=== PATIENT | male | born 1985 | race African-American/Black ===

== ENCOUNTER 2018-07-23 15:22 | Emergency (ER) | payer MEDICAID ==
[~2018-07-23] VITALS: Ht 177.8 cm; Wt 82.0 kg
[2018-07-23] MEDS ORDERED: LORAZEPAM 1MG TABLET PO ONE (16:00)
[2018-07-23] MEDS ORDERED: OLANZAPINE 5MG TABLET ODT PO ONE (16:00)
[2018-07-23 16:34] LABS: BASOPHILS % 0.5 % (0.0-2.0); EOSINOPHILS % 0.3 % (0.0-5.0); HEMOGLOBIN. 14.8 g/dL (14.0-18.0); LYMPHOCYTES % 19.4 % (20.0-50.0); MEAN CORPUSCULAR HEMOGLOBIN 28.3 pg (28.0-32.0); MEAN CORPUSCULAR VOLUME 88.2 fL (80.0-94.0); MEAN PLATELET VOLUME 7.7 fl (7.4-10.4); MONOCYTES % 6.6 % (2.0-8.0); NEUTROPHILS % 73.2 % (40.0-76.0); PLATELET 311 x1000/uL (130-400); RED BLOOD CELL COUNT 5.22 mill/uL (4.7-6.1); RED CELL DISTRIBUTION WIDTH 15.5 % (11.6-14.6)
[2018-07-23 16:35] LABS: CHLORIDE 103 mEq/L (98-107)
[2018-07-23 16:39] LABS: ETHANOL BLOOD 87 mg/dL
[2018-07-23 17:54] LABS: *AMPHETAMINES SCREEN URINE NEGATIVE (NEGATIVE); *BARBITURATES SCREEN URINE NEGATIVE (NEGATIVE); *BENZODIAZEPINES SCREEN URINE NEGATIVE (NEGATIVE); *COCAINE SCREEN URINE NEGATIVE (NEGATIVE); METHADONE URINE SCREEN NEGATIVE (NEGATIVE)
[2018-07-23 17:55] LABS: CANNABINOID URINE SCREEN NEGATIVE (NEGATIVE); OPIATES URINE SCREEN NEGATIVE (NEGATIVE); PHENCYCLIDINE URINE SCREEN NEGATIVE (NEGATIVE)
[2018-07-23] MEDS ORDERED: OLANZAPINE 5MG TABLET ODT PO NR (21:30)
[2018-07-23] MEDS ORDERED: LORAZEPAM 1MG TABLET PO NR (21:30)
[2018-07-24 12:37] LABS: CLARITY URINE CLEAR (CLEAR); COLOR URINE YELLOW (YELLOW); KETONES URINE TRACE (NEGATIVE); LEUKOCYTE ESTERASE URINE NEGATIVE (NEGATIVE); NITRITE URINE NEGATIVE (NEGATIVE); OCCULT BLOOD URINE NEGATIVE (NEGATIVE); PH URINE 6.5 (4.5-8.0); PROTEIN URINE TRACE (NEGATIVE); SPECIFIC GRAVITY URINE 1.033 (1.005-1.030)
[2018-07-24 19:20] VITALS: BP 130/73
== END 2018-07-24 19:41 ==
LOC: ER 15:22
DX: F20.9 Schizophrenia, unspecified (principal); F10.129 Alcohol abuse with intoxication, unspecified; R45.851 Suicidal ideations; F15.10 Other stimulant abuse, uncomplicated; F17.210 Nicotine dependence, cigarettes, uncomplicated; Y90.4 Blood alcohol level of 80-99 mg/100 ml; Z71.6 Tobacco abuse counseling; Z91.14 Patient's other noncompliance with medication regimen
CPT/HCPCS: 36415; 80048; 80305; 80307; 80329; 81003; 85025; 99285; 99406; G0482

== ENCOUNTER 2018-08-29 13:20 | Emergency (ER) | payer MEDICAID ==
[~2018-08-29] VITALS: Ht 177.8 cm; Wt 77.0 kg
[2018-08-29 23:22] VITALS: BP 153/118
== END 2018-08-29 17:09 | disposition left against medical advice (07) ==
LOC: ER 13:38
DX: Z53.21 Procedure and treatment not carried out due to patient leaving prior to being seen by health care provider (principal); F17.200 Nicotine dependence, unspecified, uncomplicated

== ENCOUNTER 2018-08-30 02:57 | Inpatient (IN) | payer MEDICAID, OTHER ==
[2018-08-30] VITALS (20 sets, daily range): BP systolic 44–142; BP diastolic 25–102
[~2018-08-30] VITALS: Ht 165.1 cm; Wt 71.2 kg
[2018-08-30] MEDS ORDERED: SODIUM CHLORIDE 0.9% 1000ML BAG (SEPSIS BOLUS) IV ONE (04:00)
[2018-08-30 04:45] LABS: HEMATOCRIT. 46.4 % (42.0-52.0); HEMOGLOBIN. 13.8 g/dL (14.0-18.0); MEAN CORPUSCULAR HEMOGLOBIN 28.7 pg (28.0-32.0); MEAN CORPUSCULAR VOLUME 96.3 fL (80.0-94.0); PLATELET 314 x1000/uL (130-400); RED BLOOD CELL COUNT 4.81 mill/uL (4.7-6.1); RED CELL DISTRIBUTION WIDTH 15.2 % (11.6-14.6)
[2018-08-30 04:52] LABS: CHLORIDE 78 mEq/L (98-107)
[2018-08-30 04:56] LABS: ETHANOL BLOOD < 10 mg/dL
[2018-08-30 05:09] LABS: CLARITY URINE CLEAR (CLEAR); COLOR URINE YELLOW (YELLOW); KETONES URINE 4+ (NEGATIVE); LEUKOCYTE ESTERASE URINE NEGATIVE (NEGATIVE); NITRITE URINE NEGATIVE (NEGATIVE); OCCULT BLOOD URINE 1+ (NEGATIVE); PROTEIN URINE 1+ (NEGATIVE); SPECIFIC GRAVITY URINE 1.022 (1.005-1.030); UROBILINOGEN URINE 0.2 E.U./dL (0.2-1.0)
[2018-08-30] MEDS ORDERED: VANCOMYCIN 1 G PREMIX 200 ML IV NR (05:15)
[2018-08-30] MEDS ORDERED: PIPERACILLIN/TAZOBACTAM 3.375GM/50ML PREMIX IV ONE (05:15)
[2018-08-30] MEDS ORDERED: PIPERACILLIN/TAZ 3.375G PREMIX 50 ML IV NR (05:15)
[2018-08-30] MEDS ORDERED: INSULIN REGULAR (DRIP) 100 UNITS in SODIUM CHLORIDE 0.9% 100 ML IV NR ×4 (05:45)
[2018-08-30 06:09] LABS: PLATELET ESTIMATE NORMAL
[2018-08-30 08:53] LABS: BG BASE EXCESS -24.6 mmol/L (-2.0-2.0); BG CARBOXYHEMOGLOBIN 0.8 % (0.5-1.5); BG DEOXYHEMOGLOBIN 6.4 % (0.0-5.0); BG HCO3 ACT 3.6 mmol/L (22.0-26.0); BG METHEMOGLOBIN 0.3 % (0.0-1.5); BG OXYGEN SATURATION 93.5 % (92.0-98.5); BG OXYHEMOGLOBIN 92.5 % (94.0-97.0); BG PCO2 12.8 mmHg (35.0-45.0); BG PH 7.061 (7.350-7.450); BG PO2 75.3 mmHg (75.0-100.0); BG SAMPLE SITE RIGHT BRACHIAL; BG TOTAL HEMOGLOBIN 14.6 g/dL (12.0-18.0); BG VENT MODE ROOM AIR
[2018-08-30] MEDS ORDERED: INSULIN REGULAR (DRIP) 100 UNITS in SODIUM CHLORIDE 0.9% 100 ML IV SCH (09:04)
[2018-08-30] MEDS ORDERED: MAGNESIUM/ALUMINUM HYDROXIDE/SIMETHICONE 30ML UDC PO PRN (09:15)
[2018-08-30] MEDS ORDERED: CLONIDINE 0.1MG TABLET PO PRN (09:15)
[2018-08-30] MEDS ORDERED: ZOLPIDEM TARTRATE 5MG TABLET PO PRN (09:15)
[2018-08-30] MEDS ORDERED: DOCUSATE SODIUM 100MG CAPSULE PO PRN (09:15)
[2018-08-30] MEDS ORDERED: ONDANSETRON HCL 4MG/2ML INJ IV PRN (09:15)
[2018-08-30] MEDS ORDERED: NA PHOS,M-B/NA PHOS,DI-BA ENEMA 118ML PR PRN (09:15)
[2018-08-30] MEDS ORDERED: IPRATROPIUM/ALBUTEROL 0.5-3(2.5)MG/3ML NEB INH PRN (09:15)
[2018-08-30] MEDS ORDERED: DEXTROSE 50% WATER 50ML SYRINGE IV PRN ×2 (09:15)
[2018-08-30] MEDS ORDERED: ACETAMINOPHEN 325MG TABLET PO PRN (09:15)
[2018-08-30] MEDS: PANTOPRAZOLE SODIUM 40 MG/VIAL IV SCH (11:04)
[2018-08-30] MEDS: METOPROLOL TARTRATE 25MG TABLET PO SCH ×2 (11:05→20:33)
[2018-08-30] MEDS: SODIUM CHLORIDE 0.9% 1,000 ML IV SCH ×2 (11:05→15:55)
[2018-08-30] MEDS: BLOOD SUGAR DIAGNOSTIC STRIP TEST SCH ×13 (11:07→23:00)
[2018-08-30] MEDS: INSULIN REGULAR (DRIP) 100 UNITS in SODIUM CHLORIDE 0.9% 100 ML IV SCH ×2 (11:07→21:40)
[2018-08-30 12:08] LABS: BASOPHILS % 0.4 % (0.0-2.0); HEMATOCRIT. 43.2 % (42.0-52.0); HEMOGLOBIN. 14.1 g/dL (14.0-18.0); LYMPHOCYTES % 8.3 % (20.0-50.0); MEAN CORPUSCULAR HEMOGLOBIN 28.5 pg (28.0-32.0); MEAN CORPUSCULAR VOLUME 87.2 fL (80.0-94.0); MEAN PLATELET VOLUME 9.2 fl (7.4-10.4); MONOCYTES % 8.5 % (2.0-8.0); NEUTROPHILS % 82.8 % (40.0-76.0); PLATELET 297 x1000/uL (130-400); RED BLOOD CELL COUNT 4.95 mill/uL (4.7-6.1); RED CELL DISTRIBUTION WIDTH 15.1 % (11.6-14.6)
[2018-08-30 12:11] LABS: PROTHROMBIN TIME 9.9 sec (9.1-11.1)
[2018-08-30 12:17] LABS: CHLORIDE 105 mEq/L (98-107)
[2018-08-30 12:23] LABS: PHOSPHORUS 1.6 mg/dL (2.5-4.9)
[2018-08-30] MEDS ORDERED: SODIUM BICARBONATE 8.4% 1 MEQ/ML 50ML SYR IV SCH (13:15)
[2018-08-30] MEDS ORDERED: SODIUM PHOS,M-BASIC-D-BASIC 20 MM in DEXT 5% WATER 243.3333 ML IV SCH (14:00)
[2018-08-30 18:57] LABS: CHLORIDE 111 mEq/L (98-107)
[2018-08-30] MEDS ORDERED: DEXTROSE 5% WATER 1,000 ML IV SCH (19:00)
[2018-08-30] MEDS: LEVOFLOXACIN 500MG PREMIX 100 ML IV SCH (20:32)
[2018-08-30] MEDS: GUAIFENESIN 200MG/10ML SUGAR FREE UDC PO PRN (20:41)
[2018-08-30] MEDS ORDERED: CEFTRIAXONE 1 G PREMIX 50 ML IV SCH (21:00)
[2018-08-30] MEDS: DEXT 5%/0.9% NACL KCL 20MEQ/L 1,000 ML IV SCH (21:40)
[2018-08-31] VITALS (38 sets, daily range): BP systolic 79–141; BP diastolic 33–87
[2018-08-31] MEDS: BLOOD SUGAR DIAGNOSTIC STRIP TEST SCH ×26 (00:34→23:45)
[2018-08-31 00:56] LABS: CHLORIDE 107 mEq/L (98-107)
[2018-08-31] MEDS: GUAIFENESIN 200MG/10ML SUGAR FREE UDC PO PRN (03:39)
[2018-08-31] MEDS: DEXT 5%/0.9% NACL KCL 20MEQ/L 1,000 ML IV SCH ×3 (05:25→18:59)
[2018-08-31 05:30] LABS: HEMATOCRIT. 36.2 % (42.0-52.0); HEMOGLOBIN. 12.4 g/dL (14.0-18.0); MEAN CORPUSCULAR HEMOGLOBIN 28.5 pg (28.0-32.0); MEAN CORPUSCULAR VOLUME 83.2 fL (80.0-94.0); RED BLOOD CELL COUNT 4.35 mill/uL (4.7-6.1); RED CELL DISTRIBUTION WIDTH 15.1 % (11.6-14.6)
[2018-08-31 05:32] LABS: CHLORIDE 110 mEq/L (98-107)
[2018-08-31 05:38] LABS: PHOSPHORUS 1.1 mg/dL (2.5-4.9)
[2018-08-31] MEDS: METOPROLOL TARTRATE 25MG TABLET PO SCH ×2 (08:27→21:25)
[2018-08-31] MEDS: PANTOPRAZOLE SODIUM 40 MG/VIAL IV SCH (08:27)
[2018-08-31] MEDS ORDERED: POTASSIUM PHOS,M-BASIC-D-BASIC 30 MMOL in DEXT 5% WATER 500 ML IV SCH (09:00)
[2018-08-31 09:49] LABS: PLATELET ESTIMATE NORMAL
[2018-08-31 12:19] LABS: *AMPHETAMINES SCREEN URINE NEGATIVE (NEGATIVE); *BARBITURATES SCREEN URINE NEGATIVE (NEGATIVE); *BENZODIAZEPINES SCREEN URINE NEGATIVE (NEGATIVE); *COCAINE SCREEN URINE NEGATIVE (NEGATIVE); METHADONE URINE SCREEN NEGATIVE (NEGATIVE)
[2018-08-31 12:20] LABS: CANNABINOID URINE SCREEN NEGATIVE (NEGATIVE); OPIATES URINE SCREEN NEGATIVE (NEGATIVE); PHENCYCLIDINE URINE SCREEN NEGATIVE (NEGATIVE)
[2018-08-31] MEDS: INSULIN REGULAR (DRIP) 100 UNITS in SODIUM CHLORIDE 0.9% 100 ML IV SCH (16:18)
[2018-08-31 16:21] LABS: CHLORIDE 115 mEq/L (98-107)
[2018-08-31 16:37] LABS: PHOSPHORUS 0.8 mg/dL (2.5-4.9)
[2018-08-31] MEDS ORDERED: POTASSIUM PHOS,M-BASIC-D-BASIC 30 MMOL in DEXT 5% WATER 500 ML IV NR (18:00)
[2018-08-31] MEDS: LEVOFLOXACIN 500MG PREMIX 100 ML IV SCH (20:07)
[2018-08-31] MEDS: CEFTRIAXONE 1,000 MG in DEXTROSE 5% WATER 50 ML IV SCH (21:25)
[2018-09-01] VITALS (49 sets, daily range): BP systolic 63–144; BP diastolic 37–100
[2018-09-01] MEDS: KETOROLAC 15MG/ML VIAL IV PRN ×3 (00:44→21:08)
[2018-09-01] MEDS: BLOOD SUGAR DIAGNOSTIC STRIP TEST SCH ×24 (00:46→23:11)
[2018-09-01] MEDS: DEXT 5%/0.9% NACL KCL 20MEQ/L 1,000 ML IV SCH ×4 (01:40→20:44)
[2018-09-01 07:22] LABS: BASOPHILS % 0.8 % (0.0-2.0); EOSINOPHILS % 0.6 % (0.0-5.0); HEMATOCRIT. 32.8 % (42.0-52.0); HEMOGLOBIN. 11.2 g/dL (14.0-18.0); LYMPHOCYTES % 23.1 % (20.0-50.0); MEAN CORPUSCULAR HEMOGLOBIN 28.6 pg (28.0-32.0); MEAN CORPUSCULAR VOLUME 83.9 fL (80.0-94.0); MONOCYTES % 11.9 % (2.0-8.0); NEUTROPHILS % 63.6 % (40.0-76.0); PLATELET 207 x1000/uL (130-400); RED BLOOD CELL COUNT 3.92 mill/uL (4.7-6.1); RED CELL DISTRIBUTION WIDTH 15.4 % (11.6-14.6)
[2018-09-01 07:41] LABS: CHLORIDE 111 mEq/L (98-107)
[2018-09-01 07:48] LABS: PHOSPHORUS 2.8 mg/dL (2.5-4.9)
[2018-09-01] MEDS ORDERED: POTASSIUM CHLORIDE 20MEQ TABLET SR PO SCH (08:30)
[2018-09-01] MEDS ORDERED: POTASSIUM CHLORIDE INJ 40 MEQ in DEXT 5% WATER 250 ML IV ONE (09:00)
[2018-09-01] MEDS: PANTOPRAZOLE SODIUM 40 MG/VIAL IV SCH (09:34)
[2018-09-01] MEDS: METOPROLOL TARTRATE 25MG TABLET PO SCH ×2 (09:35→20:44)
[2018-09-01] MEDS: INSULIN REGULAR (DRIP) 100 UNITS in SODIUM CHLORIDE 0.9% 100 ML IV SCH (11:12)
[2018-09-01 20:27] LABS: CHLORIDE 110 mEq/L (98-107)
[2018-09-01] MEDS ORDERED: POTASSIUM CHLORIDE 20MEQ TABLET SR PO NR (21:00)
[2018-09-01] MEDS: INSULIN LISPRO 100 UNITS/ML SUBCUT SCH (21:00)
[2018-09-01] MEDS ORDERED: DEXTROSE 50% WATER 50ML SYRINGE IV PRN (21:00)
[2018-09-01] MEDS: LEVOFLOXACIN 500MG PREMIX 100 ML IV SCH (21:09)
[2018-09-01] MEDS: CEFTRIAXONE 1,000 MG in DEXTROSE 5% WATER 50 ML IV SCH (21:09)
[2018-09-01] MEDS ORDERED: INSULIN GLARGINE UD 100 UNITS/ML SYR SUBCUT NR (21:30)
[2018-09-02] VITALS (23 sets, daily range): BP systolic 100–163; BP diastolic 46–89
[2018-09-02] MEDS: KETOROLAC 15MG/ML VIAL IV PRN (04:52)
[2018-09-02 05:26] LABS: BASOPHILS % 0.5 % (0.0-2.0); EOSINOPHILS % 0.4 % (0.0-5.0); HEMATOCRIT. 36.7 % (42.0-52.0); HEMOGLOBIN. 12.2 g/dL (14.0-18.0); LYMPHOCYTES % 23.9 % (20.0-50.0); MEAN CORPUSCULAR HEMOGLOBIN 28.3 pg (28.0-32.0); MEAN CORPUSCULAR VOLUME 85.1 fL (80.0-94.0); MEAN PLATELET VOLUME 8.3 fl (7.4-10.4); MONOCYTES % 13.3 % (2.0-8.0); NEUTROPHILS % 61.9 % (40.0-76.0); PLATELET 205 x1000/uL (130-400); RED BLOOD CELL COUNT 4.31 mill/uL (4.7-6.1)
[2018-09-02] MEDS ORDERED: POTASSIUM CHLORIDE 20MEQ TABLET SR PO SCH (06:00)
[2018-09-02 06:14] LABS: CHLORIDE 108 mEq/L (98-107)
[2018-09-02] MEDS: BLOOD SUGAR DIAGNOSTIC STRIP TEST SCH ×2 (07:50→12:43)
[2018-09-02] MEDS: INSULIN LISPRO 100 UNITS/ML SUBCUT SCH ×4 (08:38→13:17)
[2018-09-02] MEDS: PANTOPRAZOLE SODIUM 40 MG/VIAL IV SCH (09:11)
[2018-09-02] MEDS: METOPROLOL TARTRATE 25MG TABLET PO SCH (09:12)
[2018-09-03] MEDS ORDERED: LEVOFLOXACIN 500MG TABLET PO SCH (11:00)
== END 2018-09-02 14:23 | disposition home or self-care (01) | DRG 720 ==
LOC: ER 02:57 → CVICU 05:54 → EDBEDREQSVC 06:01 → EDBEDREQTM 06:01 → EDBEDREQ 06:01 → ENRESERV 07:10
PROVIDERS: ADMIT Internal Medicine; ATTEND Internal Medicine
DX: A41.9 Sepsis, unspecified organism (principal); E11.10 Type 2 diabetes mellitus with ketoacidosis without coma; N17.9 Acute kidney failure, unspecified; G92 Toxic encephalopathy; E83.39 Other disorders of phosphorus metabolism; E87.5 Hyperkalemia; E87.1 Hypo-osmolality and hyponatremia; F17.210 Nicotine dependence, cigarettes, uncomplicated; Z79.4 Long term (current) use of insulin; Z91.14 Patient's other noncompliance with medication regimen
CPT/HCPCS: 36415; 36600; 71045; 80048; 80305; 82010; 82375; 82805; 82962; 83036; 83605; 83735; 84100; 84145; 93005; 97162; 99285; C9113; J0696; J1815; J1885; J1956; J2543; J3370; J3480; J3490; J7030; J7050; J7060; J7070; J7620